=== PATIENT | male | born 1955 | race Two or more races ===

== ENCOUNTER 2019-04-13 16:24 | Emergency (ER) | payer OTHER ==
[~2019-04-13] VITALS: Ht 172.7 cm; Wt 86.6 kg
--- NOTE | 2019-04-13 16:30 | NUR ---
BIB FAMILY L HAND AND FACIAL PAIN S/P GLF WHILE PLAYING TENNIS. + FACIAL ABRASIONS NOTED. pt awkae, alert, -sob, -n/v, pt on monitor, vss, nad noted, pending md navarro
[2019-04-13] MEDS ORDERED: IBUPROFEN 600 MG TABLET PO ONE ×2 (16:45→17:00)
[2019-04-13] MEDS ORDERED: HYDROCODONE/APAP 5/325MG 1 EACH TABLET ONE (16:45)
--- NOTE | 2019-04-13 16:50 | NUR ---
pt and pt's family refusing to do Ct, dr weaver aware. explained risks of not doing ct, verbalizes understanding
[2019-04-13] MEDS ORDERED: HYDROCODONE/APAP 5/325MG 1 EACH TABLET PO ONE (17:00)
[2019-04-13 17:16] VITALS: BP 148/98
--- NOTE | 2019-04-13 18:30 | NUR ---
pt's niece is requesting for pain medication prescription, dr. weaver made aware, explained that patients injuries won't require narcotic pain meds, pt's niece claims she is a "dentist" and she feels that he would possibly need one based on her "experience". dr. weaver gave prescription that pt's niece requesting for.
--- NOTE | 2019-04-13 18:37 | NUR ---
Patient discharged to home in stable condition. Written and verbal after care instructions given. Patient verbalizes understanding of instruction.
== END 2019-04-13 18:58 | disposition home or self-care (01) ==
LOC: ER 16:25
DX: S62.617A Displaced fracture of proximal phalanx of left little finger, initial encounter for closed fracture (principal); S00.81XA Abrasion of other part of head, initial encounter; S00.511A Abrasion of lip, initial encounter; W18.09XA Striking against other object with subsequent fall, initial encounter; Y93.89 Activity, other specified; Y92.89 Other specified places as the place of occurrence of the external cause; Y99.8 Other external cause status
CPT/HCPCS: 26742; 73140; 99284; A6403